=== PATIENT | male | born 1980 | race Two or more races ===

== ENCOUNTER 2016-06-14 01:10 | Inpatient (IN) | payer MEDICAID ==
--- NOTE | 2016-06-14 01:23 | EDPHY ---
H & P Stated Complaint: Post Op Hernia Repair, Fever Time Seen by Provider: 06/14/16 01:16 HPI/ROS: Chief Complaint: Fever, abdominal pain HPI: 36-year-old male who 10 days status post ventral hernia repair who is presenting complaining of abdominal pain and fever at the rehab facility that he is staying in. Patient has an extensive medical history including history of colon cancer is status post colectomy with ileostomy, multiple abscesses and hernia repairs. He states that he has been having persistent abdominal pain since discharge from the hospital, but this has been worse for the last 2-3 days. Pain is up to about an 8 or 9/10, but he has not been getting his usual pain medications per his report. No nausea or vomiting or diarrhea. Denies any discharge from the wound. Today in the nursing measured temperature and told him that as 101.7 and the so called EMS. ROS: 10 point Review of Systems is negative except as noted in the HPI. PMH: Colon cancer status post ileostomy, colectomy Multiple hernia repairs C difficile colitis MRSA Congenital glaucoma Type 2 diabetes Depression Hypertension Chronic kidney disease Medications: Acidophilus Amlodipine Citalopram Glipizide Morphine A present lab Gabapentin Humalog Oxycodone Allergies: Iodinated contrast Social History: No smoking, no alcohol, no recreational drug use Family History: non-contributory Physical Exam: Gen: Awake, Alert, No Distress HEENT: Nose: no rhinorrhea Eyes: Congenital blindness Mouth: Moist mucosa Neck: Supple, no JVD Chest: nontender, lungs clear to auscultation Heart: S1, S2 normal, no murmur Abd: Soft, ventral incision is intact with petrona in place, no erythema or dehiscence, right-sided ileostomy is normal appearing, diffuse abdominal tenderness, no guarding Ext: no edema, non-tender Skin: no rash Neuro: CN II-XII intact, Sensation grossly intact, Strength 5/5 in bilateral upper and lower extremities - Personal History Current Tetanus Diphtheria and Acellular Pertussis (TDAP): Yes - Medical/Surgical History Hx Asthma: No Hx Chronic Respiratory Disease: No Hx Diabetes: No Hx Cardiac Disease: No Hx Renal Disease: No Hx Cirrhosis: No Hx Alcoholism: No Hx HIV/AIDS: No Hx Splenectomy or Spleen Trauma: No Other PMH: Hernia Repair, Colon CA, Colostomy - Social History Smoking Status: Never smoked Constitutional: Initial Vital Signs Temperature (C) 37.4 C 06/14/16 01:15 Heart Rate 111 H 06/14/16 01:15 Respiratory Rate 20 06/14/16 01:15 Blood Pressure 115/98 H 06/14/16 01:15 O2 Sat (%) 95 06/14/16 01:15 O2 Delivery Mode Room Air Allergies/Adverse Reactions: iodine Allergy (Verified 06/14/16 02:31) Home Medications: Medication Instructions Recorded ALPRAZolam 06/14/16 Amlodipine Besylate 06/14/16 Ativan 06/14/16 Citalopram 06/14/16 GABAPENTIN 06/14/16 GLIPIZIDE 06/14/16 Humalog 06/14/16 Hydromorphone HCl 06/14/16 MORPHINE SULFATE 06/14/16 Oxycodone HCl 06/14/16 Senna-S Tablet 06/14/16 Tylenol 06/14/16 Zofran 06/14/16 Medical Decision Making - Diagnostics Imaging: CT scan shows a 6.9 x 6 x 4.5 fluid collection subcutaneously adjacent to the stoma which is consistent with abscess. Patient also has an area deeper to his mesh with air tracking along the anterior midline of the perineum, no abscess. Findings are concerning for head and back saenz. It interpreted by Dr. Niño. ED Course/Re-evaluation: Patient is a noted leukocytosis. Is afebrile here. CT scan is noted. I have discussed with Dr. Aburto, general surgery. He will evaluate the patient in the ED. Patient seen by General surgery. They are requesting that given the patient's multiple medical problems that the patient be admitted to the hospitalist service. Discussed with Dr. Claudio, hospitalist. She is happy to admit with General surgery consulting. - Data Points Laboratory Results: Laboratory Results 06/14/16 01:30 06/14/16 01:30 06/14/16 06/14/16 06/14/16 01:30 01:30 01:30 WBC 12.89 10^3/uL H 10^3/uL (3.80-9.50) RBC 3.88 10^6/uL L 10^6/uL (4.40-6.38) Hgb 11.6 g/dL L g/dL (13.7-17.5) Hct 33.4 % L % (40.0-51.0) MCV 86.1 fL fL (81.5-99.8) MCH 29.9 pg pg (27.9-34.1) MCHC 34.7 g/dL g/dL (32.4-36.7) RDW 13.1 % % (11.5-15.2) Plt Count 366 10^3/uL 10^3/uL (150-400) MPV 9.1 fL fL (8.7-11.7) Neut % (Auto) 76.6 % H % (39.3-74.2) Lymph % (Auto) 10.6 % L % (15.0-45.0) [place] % (Auto) 8.8 % % (4.5-13.0) Eos % (Auto) 2.9 % % (0.6-7.6) Baso % (Auto) 0.3 % % (0.3-1.7) Nucleat RBC Rel Count 0.0 % % (0.0-0.2) Absolute Neuts (auto) 9.88 10^3/uL H 10^3/uL (1.70-6.50) Absolute Lymphs (auto) 1.36 10^3/uL 10^3/uL (1.00-3.00) Absolute Monos (auto) 1.14 10^3/uL H 10^3/uL (0.30-0.80) Absolute Eos (auto) 0.37 10^3/uL 10^3/uL (0.03-0.40) Absolute Basos (auto) 0.04 10^3/uL 10^3/uL (0.02-0.10) Absolute Nucleated RBC 0.00 10^3/uL 10^3/uL (0-0.01) Immature Gran % 0.8 % % (0.0-1.1) Immature Gran # 0.10 10^3/uL 10^3/uL (0.00-0.10) Sodium 135 mEq/L mEq/L (134-144) Potassium 3.8 mEq/L mEq/L (3.5-5.2) Chloride 100 mEq/L mEq/L (97-110) Carbon Dioxide 27 mEq/l mEq/l (22-31) Anion Gap 8 mEq/L mEq/L (8-16) BUN 10 mg/dL mg/dL (7-23) Creatinine 0.6 mg/dL L mg/dL (0.7-1.3) Estimated GFR > 60 Glucose 166 mg/dL H mg/dL (70-100) Calcium 8.7 mg/dL mg/dL (8.5-10.4) Total Bilirubin 0.5 mg/dL mg/dL (0.1-1.4) Conjugated Bilirubin 0.3 mg/dL mg/dL (0.0-0.5) Unconjugated Bilirubin 0.2 mg/dL mg/dL (0.0-1.1) AST 11 IU/L L IU/L (17-59) ALT 28 IU/L IU/L (21-72) Alkaline Phosphatase 96 IU/L IU/L (38-126) Total Protein 5.7 g/dL L g/dL (6.3-8.2) Albumin 2.9 g/dL L g/dL (3.5-5.0) Lipase 32.0 IU/L IU/L (23-300) Urine Color PALE YELLOW Urine Appearance CLEAR Urine pH 6.0 (5.0-7.5) Ur Specific [place] 1.005 (1.002-1.030) Urine Protein NEGATIVE (NEGATIVE) Urine Ketones NEGATIVE (NEGATIVE) Urine Blood NEGATIVE (NEGATIVE) Urine Nitrate NEGATIVE (NEGATIVE) Urine Bilirubin NEGATIVE (NEGATIVE) Urine Urobilinogen NEGATIVE EU EU (0.2-1.0) Ur Leukocyte Esterase NEGATIVE (NEGATIVE) Urine Glucose NEGATIVE (NEGATIVE) Departure - Departure Disposition: [facility] Inpatient Acute Clinical Impression: Abscess, Abdominal pain Condition: Fair Referrals: WINSTON GODOY [Primary Care Provider] - As per Instructions
[2016-06-14 01:55] LABS: % IMMATURE GRANULYOCYTES 0.8 % (0.0-1.1); ADD DIFF? NO; ADD MORPH? NO; ADD SCAN? NO; ATYPICAL LYMPHOCYTE FLAG 0 (0-99); FRAGMENT RBC FLAG 0 (0-99); HEMATOCRIT 33.4 % (40.0-51.0); HEMOGLOBIN 11.6 g/dL (13.7-17.5); LEFT SHIFT FLG 0 (0-99); LIPEMIA HEMOLYSIS FLAG 90 (0-99); MEAN CELL HEMOGLOBIN 29.9 pg (27.9-34.1); MEAN CELL HEMOGLOBIN CONCENTR. 34.7 g/dL (32.4-36.7); MEAN CELL VOLUME 86.1 fL (81.5-99.8); MEAN PLATELET VOLUME 9.1 fL (8.7-11.7); PLATELET CLUMPS FLAG 0 (0-99); PLATELET COUNT 366 10^3/uL (150-400); RED BLOOD CELL COUNT 3.88 10^6/uL (4.40-6.38); RED CELL DISTRIBUTION WIDTH 13.1 % (11.5-15.2)
[2016-06-14 01:59] LABS: COLOR PALE YELLOW; LEUKOCYTE ESTERASE,URINE NEGATIVE (NEGATIVE); NITRITE,URINE NEGATIVE (NEGATIVE)
[2016-06-14 02:03] LABS: ALANINE AMINOTRANSFERASE 28 IU/L (21-72); ALBUMIN 2.9 g/dL (3.5-5.0); ALKALINE PHOSPHATASE 96 IU/L (38-126); ANION GAP 8 mEq/L (8-16); ASPARTATE AMINOTRANSFERASE 11 IU/L (17-59); BILIRUBIN,TOTAL 0.5 mg/dL (0.1-1.4); BILIRUBIN-CONJUGATED 0.3 mg/dL (0.0-0.5); BILIRUBIN-UNCONJUGATED 0.2 mg/dL (0.0-1.1); CALCIUM 8.7 mg/dL (8.5-10.4); CARBON DIOXIDE 27 mEq/l (22-31); CHLORIDE 100 mEq/L (97-110); CREATININE 0.6 mg/dL (0.7-1.3); GLOMERULAR FILTRATION RATE > 60; GLUCOSE 166 mg/dL (70-100); POTASSIUM 3.8 mEq/L (3.5-5.2); SODIUM 135 mEq/L (134-144); TOTAL PROTEIN 5.7 g/dL (6.3-8.2)
[2016-06-14] MEDS ORDERED: IOPAMIDOL (ISOVUE-300) 100 ML BTL IV ONE (02:07)
[2016-06-14] MEDS ORDERED: HYDROmorphONE/DILAUDID 1 MG/ML SYR IVP ONE ×2 (03:58→11:03)
[2016-06-14] MEDS ORDERED: NS 1,000 ML IV ONE (03:59)
[2016-06-14] MEDS ORDERED: ERTAPENEM 1 GM in NS 100 ML IV ONE (03:59)
[2016-06-14] MEDS ORDERED: ONDANSETRON 4 MG/2 ML VIAL IVP PRN (04:29)
[2016-06-14] MEDS ORDERED: ONDANSETRON DISINTEGRATING 4 MG TAB PO PRN ×2 (04:29→12:18)
[2016-06-14] MEDS ORDERED: LORazepam 2 MG/ML INJ IVP PRN (04:29)
[2016-06-14] MEDS ORDERED: ACETAMINOPHEN 325 MG TAB PO PRN (04:29)
[2016-06-14] MEDS ORDERED: D50W 25 GM/50 ML SYR IVP PRN (04:32)
--- NOTE | 2016-06-14 04:35 | GCON ---
[f rep st] CONSULTATION DATE OF CONSULTATION: 06/14/2016 CHIEF COMPLAINT: Abdominal pain. HISTORY OF PRESENT ILLNESS: This is a 36-year-old male with a complex past medical history. Briefl y, he is 10 days out from an extensive ventral and parastomal hernia repair performed at [facility] in [place]. The patient was just recently discharged from the hospital this last Thursday to [facility] for continued convalescence. The patient states that he has had an upwards of 7 para stomal and ventral hernias in the past, and that this repair was supposed to be the definitive one t o fix his peristomal hernia. He endorses that in the hospital there he had a significant amount of pain, which prompted his discharge to a rehab facility for further care. In the rehab facility, he states that today he had an acute worsening of his abdominal pain. He also had a low-grade fever, w hich is why he was transferred here. Here in the emergency department, he endorses sort of diffuse abdominal pain, cannot really localize where it is. Denies having fevers or chills, and otherwise s tates that he feels okay but does endorse that the pain is worse today. He denies having any draina ge from his midline incision, although he is blind and cannot really see it that well. He does have a right-sided stoma which is pink and looks well and is actively functioning. He had a CT scan her e in the emergency department which shows a fairly large fluid collection measuring 6 x 6 lateral to his stoma on that right side consistent with an abscess. He also has a little bit of air bubbles a round his midline incision which are, in addition, concerning. PAST MEDICAL HISTORY: Colon cancer, status post ileostomy, colectomy, multiple hernia repairs, C di fficile colitis, MRSA, congenital glaucoma and blindness, type 2 diabetes, depression, hypertension, and chronic kidney disease. MEDICATIONS: Reviewed in [employer]. PAST SURGICAL HISTORY: It appears that he had a subtotal to total colectomy. At one point in time, it does look like he had a colostomy, now only has an end ileostomy. Denies having any other surge alvarado. ALLERGIES: Iodine. REVIEW OF SYSTEMS: A full 10-point review was performed and, unless explicitly stated above, is oth erwise negative. PHYSICAL EXAMINATION: VITAL SIGNS: Temperature 37.4, blood pressure 115/98, heart rate 100, he is 95% on room air. GENERAL: He is alert and oriented, in no acute distress. He is blind. CV: He i s intermittently tachycardic, although he has no murmurs. LUNGS: Clear. ABDOMEN: Obese. His mid line incision is clean, dry and intact. His right-sided stoma is pink with active drainage. He is tender around the midline incision. I do not appreciate any rebound tenderness or guarding. LABORATORY DATA: Leukocytosis to 12,000 with a left shift. Chemistries show an elevated glucose. IMAGING: There is a CT scan of the abdomen and pelvis which shows a 6 x 6 fluid collection lateral to his stoma on the right side. He also has a few free air bubbles in the midline adjacent to his m esh repair but no free fluid around this site. ASSESSMENT AND PLAN: A 36-year-old male with a complex medical history, now with what appears to be abscess status post peristomal hernia repair. I discussed with the patient that I do think he need s to come into the hospital. I feel that this fluid collection lateral to his stoma can likely be a ccessed percutaneously and drained. The midline air bubbles are concerning. However, given the fac t that he has had multiple hernia repairs, likely has residual mesh in the area, and I see no other reasons for him to have any missed small bowel injuries or other reasons for free air. I think that we can continue to watch this. I do think that we should start him on broad-spectrum IV antibiotic s for coverage, as there is some stranding and the fluid in that right lower quadrant is likely infe cted but do feel that he will improve with source control and antibiotics without need for operation . Will continue to follow with you. Appreciate Medicine admission. /[id number]/MODL
[2016-06-14] MEDS: HYDROmorphONE/DILAUDID 1 MG/ML SYR IVP ONE ×2 (05:31→06:00)
[2016-06-14] MEDS: NS 1,000 ML IV SCH (06:24)
--- NOTE | 2016-06-14 06:47 | PDGENHP ---
History and Physical - Chief Complaint abdominal pain, fever - History of Present Illness patient is a 36-year-old male with history of congenital glaucoma with resulting blindness, dm 2, hypertension, depression, osteoarthritis, chronic pain syndrome, multiple abdominal surgeries including subtotal colectomy with current ileostomy and s/p recent ventral hernia repair at [facility] on 06/03, discharged back to [facility] on 06/10. He presents to the ED today with complaint of increased abdominal pain and fever. Patient states since his surgery on 06/03 he has felt subjective fever/chills. However, he has had a normal appetite, has been having normal BMs. This evening, however, he had increased abdominal pain and was noted to be febrile to 101.7F, so he was given tylenol and sent to the ED for further evaluation. On arrival to the ED patient is afebrile and hemodynamically stable, although slightly tachycardic. Labs revealed leukocytosis. CT abd/pelvis was then obtained and revealed intraperitoneal air as well as abdominal wall fluid collection concerning for abscess. General surgery was consulted and recommended IR evaluation for possible drainage of abscess, IV antibiotics and symptom control. Given patient's multiple medical comorbidities, he was admitted to the hospitalist service for further management. History Information - Allergies/Home Medication List Allergies/Adverse Reactions: iodine Allergy (Verified 06/14/16 02:31) Home Medications: ALPRAZolam 06/14/16 [Last Taken Unknown] Amlodipine Besylate 06/14/16 [Last Taken Unknown] Ativan 06/14/16 [Last Taken Unknown] Citalopram 06/14/16 [Last Taken Unknown] GABAPENTIN 06/14/16 [Last Taken Unknown] GLIPIZIDE 06/14/16 [Last Taken Unknown] Humalog 06/14/16 [Last Taken Unknown] Hydromorphone HCl 06/14/16 [Last Taken Unknown] MORPHINE SULFATE 06/14/16 [Last Taken Unknown] Oxycodone HCl 06/14/16 [Last Taken Unknown] Senna-S Tablet 06/14/16 [Last Taken Unknown] Tylenol 06/14/16 [Last Taken Unknown] Zofran 06/14/16 [Last Taken Unknown] I have personally reviewed and updated: family history, medical history, social history, surgical history - Past Medical History Additional medical history: congenital glaucoma with resulting complete blindness. DM2, well controlled on oral meds. Hypertension. osteoarthritis. Chronic pain syndrome. Depression and Anxiety. history of colon cancer. h/o C diff colitis (01/2016) - Surgical History Additional surgical history: subtotal colectomy. ileostomy. multiple abdominal hernia repair surgeries (most recent on 06/03/2016). multiple eye/ corneal surgeries. ankle tendon repairs bilaterlly. craniotomy - Family History Positive for: non-pertinent - Social History Smoking Status: Never smoked Alcohol Use: None Drug Use: None Additional social history: Patient currently lives in [facility], walks with cane. Review of Systems ROS: 10pt was reviewed & negative except for what was stated in HPI & below Physical Exam Temp Pulse Resp BP Pulse Ox 36.9 C 100 20 128/90 H 95 06/14/16 05:49 06/14/16 05:49 06/14/16 05:49 06/14/16 05:49 06/14/16 05:49 O2 (L/minute) 0 Constitutional: no apparent distress, appears nourished, not in pain Eyes: other (blind) Ears, Nose, Mouth, Throat: moist mucous membranes, hearing normal, ears appear normal, no oral mucosal ulcers Cardiovascular: regular rate and rhythym, no murmur, rub, or gallop, pulses symmetric bilaterally, No JVD, No edema Peripheral Pulses: 2+: dorsalis-pedis (R), dorsalis-pedis (L) Respiratory: no respiratory distress, no rales or rhonchi, clear to auscultation Gastrointestinal: other (diffuse abdominal tenderness, recent midline incision without erythema or purulence; ileostomy in R abdominal wall) Genitourinary: no bladder fullness, no bladder tenderness Skin: warm, normal color, no rashes or abrasions, no fluctuance, no induration, No mottled Musculoskeletal: full muscle strength, no muscle tenderness, normal joint ROM, no joint effusions Neurologic: AAOx3, sensation intact bilaterally, CN II-XII Intact (other than blindness), No weakness, No numbness Psychiatric: interacting appropriately, not anxious, not encephalopathic, thought process linear Lab Data & Imaging Review 06/14/16 01:30 06/14/16 01:30 WBC 12.89 10^3/uL (3.80-9.50) H 06/14/16 01:30 RBC 3.88 10^6/uL (4.40-6.38) L 06/14/16 01:30 Hgb 11.6 g/dL (13.7-17.5) L 06/14/16 01:30 Hct 33.4 % (40.0-51.0) L 06/14/16 01:30 MCV 86.1 fL (81.5-99.8) 06/14/16 01:30 MCH 29.9 pg (27.9-34.1) 06/14/16 01:30 MCHC 34.7 g/dL (32.4-36.7) 06/14/16 01:30 RDW 13.1 % (11.5-15.2) 06/14/16 01:30 Plt Count 366 10^3/uL (150-400) 06/14/16 01:30 MPV 9.1 fL (8.7-11.7) 06/14/16 01:30 Neut % (Auto) 76.6 % (39.3-74.2) H 06/14/16 01:30 Lymph % (Auto) 10.6 % (15.0-45.0) L 06/14/16 01:30 [place] % (Auto) 8.8 % (4.5-13.0) 06/14/16 01:30 Eos % (Auto) 2.9 % (0.6-7.6) 06/14/16 01:30 Baso % (Auto) 0.3 % (0.3-1.7) 06/14/16 01:30 Nucleat RBC Rel Count 0.0 % (0.0-0.2) 06/14/16 01:30 Absolute Neuts (auto) 9.88 10^3/uL (1.70-6.50) H 06/14/16 01:30 Absolute Lymphs (auto) 1.36 10^3/uL (1.00-3.00) 06/14/16 01:30 Absolute Monos (auto) 1.14 10^3/uL (0.30-0.80) H 06/14/16 01:30 Absolute Eos (auto) 0.37 10^3/uL (0.03-0.40) 06/14/16 01:30 Absolute Basos (auto) 0.04 10^3/uL (0.02-0.10) 06/14/16 01:30 Absolute Nucleated RBC 0.00 10^3/uL (0-0.01) 06/14/16 01:30 Immature Gran % 0.8 % (0.0-1.1) 06/14/16 01:30 Immature Gran # 0.10 10^3/uL (0.00-0.10) 06/14/16 01:30 Sodium 135 mEq/L (134-144) 06/14/16 01:30 Potassium 3.8 mEq/L (3.5-5.2) 06/14/16 01:30 Chloride 100 mEq/L (97-110) 06/14/16 01:30 Carbon Dioxide 27 mEq/l (22-31) 06/14/16 01:30 Anion Gap 8 mEq/L (8-16) 06/14/16 01:30 BUN 10 mg/dL (7-23) 06/14/16 01:30 Creatinine 0.6 mg/dL (0.7-1.3) L 06/14/16 01:30 Estimated GFR > 60 06/14/16 01:30 Glucose 166 mg/dL (70-100) H 06/14/16 01:30 Calcium 8.7 mg/dL (8.5-10.4) 06/14/16 01:30 Total Bilirubin 0.5 mg/dL (0.1-1.4) 06/14/16 01:30 Conjugated Bilirubin 0.3 mg/dL (0.0-0.5) 06/14/16 01:30 Unconjugated Bilirubin 0.2 mg/dL (0.0-1.1) 06/14/16 01:30 AST 11 IU/L (17-59) L 06/14/16 01:30 ALT 28 IU/L (21-72) 06/14/16 01:30 Alkaline Phosphatase 96 IU/L (38-126) 06/14/16 01:30 Total Protein 5.7 g/dL (6.3-8.2) L 06/14/16 01:30 Albumin 2.9 g/dL (3.5-5.0) L 06/14/16 01:30 Lipase 32.0 IU/L (23-300) 06/14/16 01:30 Urine Color PALE YELLOW 06/14/16 01:30 Urine Appearance CLEAR 06/14/16 01:30 Urine pH 6.0 (5.0-7.5) 06/14/16 01:30 Ur Specific [place] 1.005 (1.002-1.030) 06/14/16 01:30 Urine Protein NEGATIVE (NEGATIVE) 06/14/16 01:30 Urine Ketones NEGATIVE (NEGATIVE) 06/14/16 01:30 Urine Blood NEGATIVE (NEGATIVE) 06/14/16 01:30 Urine Nitrate NEGATIVE (NEGATIVE) 06/14/16 01:30 Urine Bilirubin NEGATIVE (NEGATIVE) 06/14/16 01:30 Urine Urobilinogen NEGATIVE EU (0.2-1.0) 06/14/16 01:30 Ur Leukocyte Esterase NEGATIVE (NEGATIVE) 06/14/16 01:30 Urine Glucose NEGATIVE (NEGATIVE) 06/14/16 01:30 Visualized and Interpreted imaging results: Yes Interpretation: CT abd/pelvis: subcutaneous abdominal wall fluid collection concerning for abscess, intrabdominal free air Assessment & Plan Assessment: Patient is a 36 year old male with congenital glaucoma with resulting blindness , dm 2, hypertension, chronic pain syndrome, multiple abdominal surgeries including subtotal colectomy with ileostomy and s/p recent ventral hernia repair on 06/03 who presents with increased abdominal pain, fever. ED evaluation reveals abdominal wall fluid collection concerning for abscess as well as intra- abdominal free air. Plan: # abdominal pain CT findings are concerning for shashi-stomal/abdominal wall abscess. General surgery onboard, will also consult IR for attempt at percutaneous drainage. CT also concerning for intrabdominal free air, however, this may be related to recent abdominal surgery not acute bowel perforation or injury. Will continue IV antibiotics, symptom control and follow serial abdominal exams. # leukocytosis Patient with reported fever prior to arrival, on presentation has leukocytosis and tachycardia, meeting SIRS criteria. Given obvious source of infection in abdomen, meets sepsis criteria, without evidence for severe sepsis. Will f/u blood cultures, sent abd fluid culture when obtained and continue IV ertapenem. # chronic pain syndrome Patient with chronic pain and now presents with acute abdominal pain. Will confirm and continue home long acting medicine, with IV dilaudid as needed for breakthrough. # chronic hypertension BP stable, will confirm and continue home meds. # DM2 Patient reports DM is well controlled on oral meds. Will hold orals while inpatient and place on sliding scale coverage. # dispo: admit to inpatient service for likely > 2 [place] stay # gen: NPO DVT ppx: high risk, lovenox Full code
[2016-06-14] MEDS ORDERED: ENOXAPARIN 40 MG/0.4 ML SYR SC SCH (09:00)
[2016-06-14 09:20] LABS: INR 1.13 (0.83-1.16); PROTIME(PATIENT) 14.4 SEC (12.0-15.0)
[2016-06-14] MEDS: HYDROmorphONE/DILAUDID 1 MG/ML SYR IVP PRN ×2 (10:49→15:37)
[2016-06-14] MEDS: LORazepam 2 MG/ML INJ IVP PRN ×3 (11:14→23:13)
[2016-06-14] MEDS: INSULIN LISPRO 100 UNIT/ML SC SCH ×4 (11:14→22:07)
[2016-06-14] MEDS ORDERED: oxyCODONE IR 5 MG TAB PO PRN (12:18)
[2016-06-14] MEDS ORDERED: NON-FORMULARY NEW DRUG (Citalopram Hydrobromide [Citalopram Hbr] 40 MG) PO SCH (12:30)
[2016-06-14] MEDS ORDERED: LIDOCAINE 1% 30 ML SDV ONE (12:45)
[2016-06-14] MEDS ORDERED: NA BICARBONATE 50 MEQ/50 ML VIAL ONE (12:46)
--- NOTE | 2016-06-14 13:37 | HOSPPROG ---
Hospitalist Progress Note Assessment/Plan: Patient is a 36 year old male with congenital glaucoma with resulting blindness , dm 2, hypertension, chronic pain syndrome, multiple abdominal surgeries including subtotal colectomy with ileostomy and s/p recent ventral hernia repair on 06/03 who presents with increased abdominal pain, fever. ED evaluation reveals abdominal wall fluid collection concerning for abscess as well as intra- abdominal free air. Plan: # abdominal pain CT findings are concerning for shashi-stomal/abdominal wall abscess. General surgery onboard, will also consult IR for attempt at percutaneous drainage. CT also concerning for intrabdominal free air, however, this may be related to recent abdominal surgery not acute bowel perforation or injury. Consult ID. D/W Dr Villalpando. # leukocytosis Patient with reported fever prior to arrival, on presentation has leukocytosis and tachycardia, meeting SIRS criteria. Given obvious source of infection in abdomen, meets sepsis criteria, without evidence for severe sepsis. Will f/u blood cultures, sent abd fluid culture when obtained and continue IV ertapenem. # chronic pain syndrome Patient with chronic pain and now presents with acute abdominal pain. Will confirm and continue home long acting medicine, with IV dilaudid as needed for breakthrough. Restart home meds when able. Change Ativan to Q4. # chronic hypertension BP stable, will confirm and continue home meds. # DM2 Patient reports DM is well controlled on oral meds. Will hold orals while inpatient and place on sliding scale coverage. # dispo: admit to inpatient service for likely > 2 [place] stay # gen: NPO DVT ppx: high risk, lovenox Full code Subjective: Having significant pain. anxious. Objective: Vital Signs Temp Pulse Resp BP Pulse Ox 36.6 C 94 15 120/77 93 06/14/16 11:45 06/14/16 11:45 06/14/16 11:45 06/14/16 11:45 06/14/16 11:45 06/13/16 06/14/16 06/15/16 05:59 05:59 05:59 Intake Total 600 Output Total 300 Balance 300 PT 14.4 SEC (12.0-15.0) 06/14/16 08:49 INR 1.13 (0.83-1.16) 06/14/16 08:49 - Physical Exam Constitutional: chronically ill appearing, obese, uncomfortable Eyes: No PERRL, No anicteric sclera, No EOMI Ears, Nose, Mouth, Throat: moist mucous membranes, hearing normal, ears appear normal Cardiovascular: tachycardia, No JVD, No edema Respiratory: no respiratory distress, no rales or rhonchi, reduced air movement Gastrointestinal: tenderness, No ascites, No distension Skin: warm, normal color, No erythema Musculoskeletal: pain with ROM, muscular tenderness, abnormal gait, generalized weakness Neurologic: AAOx3 Psychiatric: not encephalopathic, thought process linear, anxious ICD10 Worksheet Patient Problems: Problems Problem Status Onset Abscess Acute Abdominal pain Acute
[2016-06-14] MEDS: glipiZIDE 5 MG TAB PO SCH (13:43)
[2016-06-14] MEDS: SENNOSIDES/DOCUSATE SODIUM TAB PO PRN (13:43)
--- NOTE | 2016-06-14 15:15 | POSTOPPROG ---
Post Op Note Date of Operation: 06/14/16 Surgeon: Chano Escalante Anesthesia: Local (Specify) Pre-op Diagnosis: Peristomal fluid collection, abdominal wall Post-op Diagnosis: Same Indication: Pain, tenderness, elevated WBC Procedure: US guided abscess drainage Findings: 14 ml serosanguinous, mildly cloudy, thin fluid Inf/Abcess present in the surg proc area at time of surgery?: Yes Depth: Superfical (Skin SQ) EBL: Minimal Drains: Other (8F pigtail drain in loculated superficial collection) Specimen(s): 10 ml sent for microbiology
[2016-06-14] MEDS: ALPRAZolam 0.5 MG TAB PO SCH ×2 (15:37→21:56)
[2016-06-14] MEDS: GABAPENTIN 300 MG CAP PO SCH ×2 (15:37→21:56)
[2016-06-14] MEDS: VANCOMYCIN HCL/NORMAL SALINE 250 ML IV SCH (18:48)
[2016-06-14] MEDS: HYDROmorphONE/DILAUDID 4 MG TAB PO PRN ×2 (18:48→23:13)
--- NOTE | 2016-06-14 18:51 | GCON ---
[f rep st] CONSULTATION INFECTIOUS DISEASE CONSULTATION. REFERRING PHYSICIAN: Monica Chen NP REASON FOR REFERRAL: Peristomal fluid collection, possible abscess. HISTORY OF PRESENT ILLNESS: Patient is a 36-year-old male with multiple medical problems. The oksana ent has congenital glaucoma and resulting blindness, type 2 diabetes, history of gastrointestinal ca ncer requiring multiple abdominal surgeries. He also was suffering from multiple ventral hernias, w ith a recent repair at [place] on June 03 of this year. He was discharged to [facility] on June 10 . The patient had fever and increased abdominal pain at [facility]. [facility] and determined by imaging to have a small peristomal fluid collection in his abdomen. T his was drained interventionally earlier this afternoon. PAST MEDICAL HISTORY: 1. Congenital glaucoma. 2. Diabetes mellitus type 2. 3. Hypertension. 4. Osteoarthritis. 5. Depression. 6. History of colon cancer. 7. History of Clostridium difficile colitis. PAST SURGICAL HISTORY: 1. Status post subtotal colectomy. 2. Status post ileostomy. 3. Status post multiple ventral hernia repair surgeries. 4. Status post multiple ocular surgeries. 5. Status post ankle tendon repair bilaterally. 6. Status post craniotomy. ANTIBIOTICS: None currently. ALLERGIES: The patient reports allergy to iodine. FAMILY HISTORY: Reviewed and noncontributory. SOCIAL HISTORY: Denies any tobacco or alcohol use. No drug use. Patient currently resides in [facility]. REVIEW OF SYSTEMS: Other than that detailed above in history of present illness, comprehensive 10-s ystem review is negative. PHYSICAL EXAMINATION: VITAL SIGNS: Temperature maximum is 37.4, temp current is 36.9, heart rate i s 101, respiratory rate is 15, blood pressure is 125/83. GENERAL: The patient is a well-formed obe se male in no acute distress. He is not toxic in appearance. He is alert and oriented x3. He has a pleasant demeanor. HEENT: Normocephalic for age. Atraumatic. The patient has his eyelids close d at all times. He is blind. No drainage from the nares. Eyes: Unable to examine. NECK: Supple. No meningismus. LUNGS: Clear to auscultation bilaterall y with good effort. HEART: Tachy but regular. No murmur, rub, or gallop noted. No significant pe ripheral edema. ABDOMEN: Soft. Tender in all quadrants. No rebound. No fluctuance. No masses. Colostomy in place right side. SKIN: Warm and dry to the touch. No rash or lesion noted. MUSCUL OSKELETAL: No muscle belly tenderness is noted. No joint line effusion or arthritis is seen. NEUR O: Cranial nerves intact, although cranial nerve 2 unable to be assessed. Peripheral sensation see ms intact in all extremities. LABORATORY DATA: The patient has a CBC dated 06/14/2016 that shows a white blood cell count of 12.9 , hemoglobin of 11.6, hematocrit of 33.4, and a platelet count of 366, differential slightly left-sh ifted, 77% segmented neutrophils. Serum chemistries on 06/14/2016 are all within normal limits. Gl ucose is mildly elevated at 166. AST and ALT are normal. Urinalysis on 06/14/2016 is all normal. MICROBIOLOGIC DATA: The patient has blood cultures dated 06/14/2016 which are no growth to date. A bdominal fluid aspirate from 06/14/2016 shows 1+ polymorphonuclear white cells, 1+ mononuclear white cells, no organisms. Culture is pending. ASSESSMENT: Probable peristomal abscess in the abdomen. Status post drainage. We will cover empir ically with both vancomycin and ertapenem for now. Patient does seem to have some systemic symptoms due to this infection. His pain is localizing in the area of the abdomen. We will follow culture data and adjust appropriately over his hospitalization. PLAN: 1. Start vancomycin 1 g IV q.12 hours. 2. Start ertapenem 1 g IV q.24 hours. 3. Follow result of culture of the abdominal fluid collection. 4. Follow temp curve and clinical improvement. /[id number]/MODL
[2016-06-14] MEDS: morphINE SR 30 MG TAB PO SCH (21:56)
[2016-06-14 22:37] LABS: GLUCOSE 169 mg/dL (70-100)
[2016-06-15] MEDS: HYDROmorphONE/DILAUDID 4 MG TAB PO PRN ×3 (03:13→20:30)
[2016-06-15] MEDS: LORazepam 2 MG/ML INJ IVP PRN ×5 (03:14→20:31)
[2016-06-15] MEDS: VANCOMYCIN HCL/NORMAL SALINE 250 ML IV SCH ×2 (05:49→17:59)
[2016-06-15] MEDS: HYDROmorphONE/DILAUDID 1 MG/ML SYR IVP PRN ×2 (07:03→11:58)
--- NOTE | 2016-06-15 08:08 | SOAPPROG ---
SOAP Progress Note Assessment/Plan: Assessment: s/p multiple surgeries drain with serosang fluid No immediate need for OR Will follow along S: Want PICC line. PICC controlled O: Incision in midline without obvious infection Good stool output in ostomy Drain with thin serosanguinous fluid Plan: 06/15/16 08:07 Objective: Vital Signs Temp Pulse Resp BP Pulse Ox 36.4 C 98 20 136/82 H 96 06/15/16 07:34 06/15/16 07:34 06/15/16 07:34 06/15/16 07:34 06/15/16 07:34 Microbiology 06/14/16 14:45 Gram Stain - Final Abdomen - Aspirate Laboratory Results 06/14/16 22:05 06/14/16 06/15/16 06/16/16 05:59 05:59 05:59 Intake Total 600 1448 Output Total 300 500 700 Balance 300 948 -700 PT 14.4 SEC (12.0-15.0) 06/14/16 08:49 INR 1.13 (0.83-1.16) 06/14/16 08:49 ICD10 Worksheet Patient Problems: Problems Problem Status Onset Abdominal pain Acute Abscess Acute
[2016-06-15] MEDS ORDERED: Herbals/Supplements -Info Only PO SCH (09:00)
[2016-06-15] MEDS: MULTIVITAMINS 1 EACH TAB PO SCH (09:07)
[2016-06-15] MEDS: ENOXAPARIN 40 MG/0.4 ML SYR SC SCH ×2 (09:07→20:29)
[2016-06-15] MEDS: INSULIN LISPRO 100 UNIT/ML SC SCH ×3 (09:07→17:53)
[2016-06-15] MEDS: GABAPENTIN 300 MG CAP PO SCH ×3 (09:08→20:30)
[2016-06-15] MEDS: morphINE SR 30 MG TAB PO SCH ×2 (09:08→20:31)
[2016-06-15] MEDS: ALPRAZolam 0.5 MG TAB PO SCH ×3 (09:08→20:30)
[2016-06-15] MEDS: CITALOPRAM 20 MG TAB PO SCH (09:08)
[2016-06-15] MEDS: glipiZIDE 5 MG TAB PO SCH (09:08)
[2016-06-15] MEDS ORDERED: ALTEPLASE 2 MG VIAL IVP PRN (09:09)
[2016-06-15] MEDS: ERTAPENEM 1 GM in NS 100 ML IV SCH (09:15)
--- NOTE | 2016-06-15 11:57 | PCMIDPN ---
Assessment/Plan: Assessment: Peristomal fluid collection which was aspirated yesterday. Patient also has mild systemic symptoms and moderate abdominal pain localized to the lower quadrants where the ostomy is located. Patient Gram stain revealed no organisms and the culture showing no growth to date. At present we are covering on both vancomycin and ertapenem. Plan to continue this empirically until clinical resolution or cultures can guide. Plan: 1. Continue both vancomycin ertapenem. 2. Follow results of fluid culture. 3. Follow clinical course. 06/15/16 15:35 Subjective: Patient is resting in his hospital bed. He states that he might be feeling slightly better. Still with abdominal pain. Although he feels this is better controlled with his Dilaudid dose. Mild fever overnight. Objective: Vancomycin # 1 Ertapenem # 2 Vital Signs Temp Pulse Resp BP Pulse Ox 36.4 C 98 20 136/82 H 96 06/15/16 07:34 06/15/16 07:34 06/15/16 07:34 06/15/16 09:08 06/15/16 07:34 Microbiology 06/14/16 14:45 Gram Stain - Final Abdomen - Aspirate Laboratory Results 06/14/16 22:05 06/14/16 06/15/16 06/16/16 05:59 05:59 05:59 Intake Total 600 1448 Output Total 386 503 7243 Balance 300 948 -1100 - Physical Exam General Appearance: WD/WN, alert, no apparent distress, obese, non-toxic Respiratory: lungs clear, normal breath sounds, No respiratory distress Cardiac/Chest: regular rate, rhythm, No tachycardia Abdomen: soft, No non-tender, No mass Skin: normal color, warm/dry, No rash Neuro/Psych: alert, normal mood/affect, oriented x 3 ICD10 Worksheet Patient Problems: Problems Problem Status Onset Abdominal pain Acute Abscess Acute
[2016-06-15] MEDS: NS 1,000 ML IV SCH (11:59)
--- NOTE | 2016-06-15 13:22 | HOSPPROG ---
Hospitalist Progress Note Assessment/Plan: 36 year old male with congenital glaucoma with resulting blindness, T2DM, hypertension, chronic pain syndrome, gastric CA, multiple abdominal surgeries including subtotal colectomy with ileostomy and s/p recent ventral hernia repair on 06/03 (at [place]) who presents with increased abdominal pain, fever. Was rehabbing at [facility]. ED evaluation reveals abdominal wall fluid collection concerning for abscess as well as intra-abdominal free air. Plan: # abdominal pain concerning for peristomal abscess CT findings are concerning for shashi-stomal/abdominal wall abscess appreciate gen surg/ID consult IR has done percutaneous drainage 06/14 started on Invanz and Vanco per ID # leukocytosis Patient with low-gd temps though afebrile currently on presentation has leukocytosis and tachycardia, meeting SIRS criteria BP stable BC NGTD # chronic pain syndrome Patient with chronic pain and now presents with acute abdominal pain on MS Contin at home Being given IV dilaudid as needed for breakthrough # chronic hypertension BP stable back on home Amlodipine # DM2 on orals at home which have been continued also on SSI coverage # dispo: admit to inpatient service for likely > 2 [place] stay # gen: has resumed a regular diet DVT ppx: high risk, lovenox Full code Subjective: Reports pain controlled with Dilaudid as well as home regimen. Objective: Vital Signs Temp Pulse Resp BP Pulse Ox 97.6 F 98 20 136/82 H 96 06/15/16 07:34 06/15/16 07:34 06/15/16 07:34 06/15/16 09:08 06/15/16 07:34 Microbiology 06/14/16 14:45 Gram Stain - Final Abdomen - Aspirate Laboratory Results 06/14/16 22:05 06/14/16 06/15/16 06/16/16 05:59 05:59 05:59 Intake Total 600 1448 Output Total 011 026 4126 Balance 300 948 -1100 PT 14.4 SEC (12.0-15.0) 06/14/16 08:49 INR 1.13 (0.83-1.16) 06/14/16 08:49 - Physical Exam Constitutional: no apparent distress Ears, Nose, Mouth, Throat: moist mucous membranes, hearing normal Cardiovascular: regular rate and rhythym, systolic murmur Respiratory: no respiratory distress Gastrointestinal: soft, non-tender abdomen Skin: warm, normal color Neurologic: AAOx3 Psychiatric: interacting appropriately ICD10 Worksheet Patient Problems: Problems Problem Status Onset Abscess Acute Abdominal pain Acute
[2016-06-15] MEDS ORDERED: IOPAMIDOL (ISOVUE-300) 100 ML BTL IV ONE (14:50)
--- NOTE | 2016-06-15 17:41 | SOAPPROG ---
SOAP Progress Note Assessment/Plan: Assessment: Poor function of drainage tube of right abdominal wall. Plan: Replace drainage tube. Scheduled for 8 a.m. tomorrow. Will need conscious sedation for this--tomorrow; NPO after midnight tonight. 06/15/16 17:38 06/15/16 17:43 Subjective: We discussed upsizing/manipulating current drainage tube or putting a tube in from a different approach. Mr. Masterson understands need for this and consents. Objective: Fluoro Tube check in IR today reveals poor function of current drainage tube. He is very sensitive to any sort of intervention, and will need IV sedation/ analgesia. Vital Signs Temp Pulse Resp BP Pulse Ox 36.2 C 96 18 121/78 H 96 06/15/16 16:00 06/15/16 16:00 06/15/16 16:00 06/15/16 16:00 06/15/16 16:00 Microbiology 06/14/16 14:45 Gram Stain - Final Abdomen - Aspirate Laboratory Results 06/14/16 22:05 06/14/16 06/15/16 06/16/16 05:59 05:59 05:59 Intake Total 600 1448 Output Total 510 619 1099 Balance 300 948 -1600 PT 14.4 SEC (12.0-15.0) 06/14/16 08:49 INR 1.13 (0.83-1.16) 06/14/16 08:49 ICD10 Worksheet Patient Problems: Problems Problem Status Onset Abdominal pain Acute Abscess Acute
[2016-06-16] MEDS: HYDROmorphONE/DILAUDID 1 MG/ML SYR IVP PRN ×3 (00:32→17:12)
[2016-06-16] MEDS: LORazepam 2 MG/ML INJ IVP PRN ×5 (00:32→22:00)
[2016-06-16 05:12] LABS: % IMMATURE GRANULYOCYTES 1.2 % (0.0-1.1); ABSOLUTE IMMATURE GRANULOCYTES 0.13 10^3/uL (0.00-0.10); ADD DIFF? NO; ADD MORPH? NO; ADD SCAN? NO; ATYPICAL LYMPHOCYTE FLAG 10 (0-99); FRAGMENT RBC FLAG 0 (0-99); HEMATOCRIT 31.7 % (40.0-51.0); HEMOGLOBIN 10.7 g/dL (13.7-17.5); LEFT SHIFT FLG 20 (0-99); LIPEMIA HEMOLYSIS FLAG 90 (0-99); MEAN CELL HEMOGLOBIN 29.5 pg (27.9-34.1); MEAN CELL HEMOGLOBIN CONCENTR. 33.8 g/dL (32.4-36.7); MEAN CELL VOLUME 87.3 fL (81.5-99.8); MEAN PLATELET VOLUME 8.9 fL (8.7-11.7); PLATELET CLUMPS FLAG 10 (0-99); PLATELET COUNT 327 10^3/uL (150-400); RED BLOOD CELL COUNT 3.63 10^6/uL (4.40-6.38); RED CELL DISTRIBUTION WIDTH 13.1 % (11.5-15.2)
[2016-06-16] MEDS: VANCOMYCIN HCL/NORMAL SALINE 250 ML IV SCH ×2 (06:02→19:49)
[2016-06-16] MEDS ORDERED: MIDAZOLAM 2 MG/2 ML VIAL ONE (08:23)
[2016-06-16] MEDS ORDERED: fentaNYL 100 MCG/2 ML INJ ONE (08:24)
[2016-06-16] MEDS ORDERED: NA BICARBONATE 50 MEQ/50 ML VIAL ONE (08:41)
[2016-06-16] MEDS ORDERED: IOPAMIDOL (ISOVUE-300) 100 ML BTL IV ONE (09:08)
[2016-06-16] MEDS: ERTAPENEM 1 GM in NS 100 ML IV SCH (10:25)
[2016-06-16] MEDS: HYDROmorphONE/DILAUDID 4 MG TAB PO PRN ×2 (12:09→21:59)
[2016-06-16] MEDS: glipiZIDE 5 MG TAB PO SCH (12:09)
[2016-06-16] MEDS: GABAPENTIN 300 MG CAP PO SCH ×3 (12:09→21:59)
[2016-06-16] MEDS: ALPRAZolam 0.5 MG TAB PO SCH ×3 (12:09→21:59)
[2016-06-16] MEDS: CITALOPRAM 20 MG TAB PO SCH (12:09)
[2016-06-16] MEDS: morphINE SR 30 MG TAB PO SCH ×2 (12:10→21:59)
[2016-06-16] MEDS: MULTIVITAMINS 1 EACH TAB PO SCH (12:10)
[2016-06-16] MEDS: INSULIN LISPRO 100 UNIT/ML SC SCH ×2 (12:10→18:27)
--- NOTE | 2016-06-16 13:01 | HOSPPROG ---
Hospitalist Progress Note Assessment/Plan: 36 year old male with congenital glaucoma with resulting blindness, T2DM, hypertension, chronic pain syndrome, gastric CA, multiple abdominal surgeries including subtotal colectomy with ileostomy and s/p recent ventral hernia repair on 06/03 (at [place]) who presents with increased abdominal pain, fever. Was rehabbing at [facility]. ED evaluation reveals abdominal wall fluid collection concerning for abscess as well as intra-abdominal free air. Today is my first encounter with the patient, chart reviewed. # peristomal abscess/fluid collection CT findings are concerning for shashi-stomal/abdominal wall abscess appreciate gen surg/ID consult IR has done percutaneous drainage 06/14 started on Invanz and Vanco per ID s/p exchange of percutaneous drain today with Dr Dutta # abdominal pain due to the above patient has asked no changes in his pain regimen if any changes are done, he would like to be notified # leukocytosis/ much improved #SIRS resolving BC NGTD #Morbid obesity w a BMI of 41 # chronic pain syndrome on continuous/chronic opioids Patient with chronic pain and now presents with acute abdominal pain on MS Contin at home Being given IV Dilaudid as needed for breakthrough # chronic hypertension BP stable on Amlodipine # DM2 on orals at home which have been continued also on SSI coverage #DVT prophylaxis: LMWH #Plan: cont current treatment/ will return to for rehab once stable Subjective: Jah says his pain is down to a '2' with pain medications. Objective: Vital Signs Temp Pulse Resp BP Pulse Ox 36.9 C 90 15 116/77 96 06/16/16 11:55 06/16/16 11:55 06/16/16 11:55 06/16/16 12:09 06/16/16 11:55 Microbiology 06/14/16 14:45 Gram Stain - Final Abdomen - Aspirate Laboratory Results 06/16/16 04:45 06/14/16 22:05 06/15/16 06/16/16 06/17/16 05:59 05:59 05:59 Intake Total 1448 1550 750 Output Total 500 2500 1000 Balance 948 -950 -250 PT 14.4 SEC (12.0-15.0) 06/14/16 08:49 INR 1.13 (0.83-1.16) 06/14/16 08:49 - Physical Exam Constitutional: no apparent distress, chronically ill appearing, obese Eyes: other (blind/ eyes closed) Ears, Nose, Mouth, Throat: hearing normal Cardiovascular: regular rate and rhythym Respiratory: no respiratory distress Gastrointestinal: normoactive bowel sounds, other (ostomy with loose stool) Skin: warm, other (percutaneous drain on right side of abd with red clear drainage) Musculoskeletal: no muscle tenderness Neurologic: AAOx3 Psychiatric: interacting appropriately, not anxious ICD10 Worksheet Patient Problems: Problems Problem Status Onset Abdominal pain Acute Abscess Acute
--- NOTE | 2016-06-16 16:44 | PCMIDPN ---
Assessment/Plan: Assessment: Peristomal fluid collection which was aspirated upon admission. Patient also has mild systemic symptoms and moderate abdominal pain localized to the lower quadrants where the ostomy is located. Patient Gram stain revealed no organisms and the culture showing no growth to date. At present we are covering on both vancomycin and ertapenem. Plan to continue this empirically until clinical resolution or cultures can guide. Plan: 1. Continue both vancomycin ertapenem. 2. Follow results of fluid culture. 3. Follow clinical course. 06/15/16 15:35 06/16/16 16:42 Subjective: Patient is doing fairly well today. Resting and taking naps often. No new complaint. Objective: Vancomycin # 2 Ertapenem # 3 Vital Signs Temp Pulse Resp BP Pulse Ox 36.9 C 90 15 116/77 96 06/16/16 11:55 06/16/16 11:55 06/16/16 11:55 06/16/16 12:09 06/16/16 11:55 Microbiology 06/14/16 14:45 Gram Stain - Final Abdomen - Aspirate Laboratory Results 06/16/16 04:45 06/14/16 22:05 06/15/16 06/16/16 06/17/16 05:59 05:59 05:59 Intake Total 1448 1550 750 Output Total 500 2500 1350 Balance 948 -950 -600 - Physical Exam General Appearance: WD/WN, alert, no apparent distress, non-toxic Respiratory: lungs clear, normal breath sounds, No respiratory distress Cardiac/Chest: regular rate, rhythm, No tachycardia Abdomen: soft, No non-tender, No mass Skin: normal color, warm/dry, No rash Neuro/Psych: alert, normal mood/affect, oriented x 3 ICD10 Worksheet Patient Problems: Problems Problem Status Onset Abdominal pain Acute Abscess Acute
[2016-06-16] MEDS: VANCOMYCIN 1.5 GM in D5W 250 ML IV SCH (20:12)
[2016-06-16] MEDS: ENOXAPARIN 40 MG/0.4 ML SYR SC SCH (21:59)
[2016-06-17] MEDS: LORazepam 2 MG/ML INJ IVP PRN ×3 (02:20→10:44)
[2016-06-17] MEDS: HYDROmorphONE/DILAUDID 1 MG/ML SYR IVP PRN (02:20)
[2016-06-17] MEDS: HYDROmorphONE/DILAUDID 4 MG TAB PO PRN ×4 (06:47→19:36)
[2016-06-17] MEDS: INSULIN LISPRO 100 UNIT/ML SC SCH ×3 (07:39→17:47)
[2016-06-17] MEDS: CITALOPRAM 20 MG TAB PO SCH (08:11)
[2016-06-17] MEDS: ENOXAPARIN 40 MG/0.4 ML SYR SC SCH ×2 (08:11→21:45)
[2016-06-17] MEDS: VANCOMYCIN 1.5 GM in D5W 250 ML IV SCH ×2 (08:11→19:41)
[2016-06-17] MEDS: glipiZIDE 5 MG TAB PO SCH (08:11)
[2016-06-17] MEDS: ALPRAZolam 0.5 MG TAB PO SCH ×3 (08:14→21:45)
[2016-06-17] MEDS: MULTIVITAMINS 1 EACH TAB PO SCH (08:14)
[2016-06-17] MEDS: GABAPENTIN 300 MG CAP PO SCH ×3 (08:14→21:45)
[2016-06-17] MEDS: morphINE SR 30 MG TAB PO SCH ×2 (08:14→21:45)
[2016-06-17] MEDS: ERTAPENEM 1 GM in NS 100 ML IV SCH (10:24)
--- NOTE | 2016-06-17 10:56 | PCMIDPN ---
Assessment/Plan: Assessment/Plan: 1. Peristomal abscess: - s/p aspiration by IR yesterday. -drain in place -Currently on empiric vanco, invanz empirically. -previous cx from 06/14 with no org on GS, and ngtd -labs from yesterday reviewed- improved. -recommend f/u imaging to ensure resolution of abscess collection and better determine ongoing need of antibiotic and mode of delivery of antibiotics (IV vs pO, or if at all still needed) - care coordinated with hospitalist team. Meds vanco 1g q12- invanz 1g daily Subjective: intermittent low grade temps. feels fatigued today. c/o abd pain more today since procedure yesterday. denies sob. Objective: Vital Signs Temp Pulse Resp BP Pulse Ox 37.6 C 101 H 18 130/81 H 97 06/17/16 07:17 06/17/16 07:17 06/17/16 07:17 06/17/16 08:14 06/17/16 07:17 Microbiology 06/14/16 14:45 Gram Stain - Final Abdomen - Aspirate Laboratory Results 06/16/16 04:45 06/14/16 22:05 06/16/16 06/17/16 06/18/16 05:59 05:59 05:59 Intake Total 1550 2250 Output Total 2500 3010 100 Balance -950 -760 -100 - Physical Exam General Appearance: alert, no apparent distress Respiratory: lungs clear Cardiac/Chest: regular rate, rhythm Extremities: No swelling Abdomen: normal bowel sounds, distended (mild), tender (to mild palpation. ), other (mildline sutures noted. ileostomy. mohit drain right abdomen with minimal drainage noted.) Skin: No erythema ICD10 Worksheet Patient Problems: Problems Problem Status Onset Abdominal pain Acute Abscess Acute
--- NOTE | 2016-06-17 14:49 | HOSPPROG ---
Hospitalist Progress Note Assessment/Plan: 36 year old male with congenital glaucoma with resulting blindness, T2DM, hypertension, chronic pain syndrome, gastric CA, multiple abdominal surgeries including subtotal colectomy with ileostomy and s/p recent ventral hernia repair on 06/03 (at [place]) who presents with increased abdominal pain, fever. Was rehabbing at [facility]. ED evaluation reveals abdominal wall fluid collection concerning for abscess as well as intra-abdominal free air. Reviewed his care with Dr Terry. # peristomal abscess/fluid collection CT findings are concerning for shashi-stomal/abdominal wall abscess appreciate gen surg/ID consult IR has done percutaneous drainage 06/14 Invanz and Vanco per ID s/p exchange of percutaneous drain # abdominal pain due to the above consider repeat CT scan tomorrow reviewed pain med changes with Norman/ he understands I have dc iv Ativan and IV Dilaudid/ is ok with both of these being oral # leukocytosis/ much improved #SIRS resolving BC NGTD #Morbid obesity w a BMI of 41 # chronic pain syndrome on continuous/chronic opioids Patient with chronic pain and now presents with acute abdominal pain on MS Contin at home oral Dilaudid for breakthrough pain # chronic hypertension BP stable on Amlodipine # DM2 on orals at home which have been continued also on SSI coverage #DVT prophylaxis: LMWH #Plan: cont current treatment/ will return to for rehab once stable/ dc iv medications, will discuss with ID tomorrow about further imaging. Subjective: Jah said his pain is worse after mobilizing/ would like one more dose of IV pain medication and says he is ok with oral pain meds. Objective: Vital Signs Temp Pulse Resp BP Pulse Ox 37.6 C 101 H 18 130/81 H 97 06/17/16 07:17 06/17/16 07:17 06/17/16 07:17 06/17/16 08:14 06/17/16 07:17 Microbiology 06/14/16 14:45 Gram Stain - Final Abdomen - Aspirate Laboratory Results 06/16/16 04:45 06/14/16 22:05 06/16/16 06/17/16 06/18/16 05:59 05:59 05:59 Intake Total 1550 2250 Output Total 2500 3010 100 Balance -950 -760 -100 PT 14.4 SEC (12.0-15.0) 06/14/16 08:49 INR 1.13 (0.83-1.16) 06/14/16 08:49 - Physical Exam Constitutional: chronically ill appearing, obese, uncomfortable Eyes: PERRL Ears, Nose, Mouth, Throat: hearing normal Cardiovascular: regular rate and rhythym Respiratory: no respiratory distress Gastrointestinal: normoactive bowel sounds, tenderness (overall the lower the abdomen) Skin: warm, normal color Musculoskeletal: no muscle tenderness Neurologic: AAOx3 Psychiatric: interacting appropriately, not anxious ICD10 Worksheet Patient Problems: Problems Problem Status Onset Abdominal pain Acute Abscess Acute
[2016-06-17] MEDS: LORazepam 1 MG TAB PO PRN ×2 (15:17→19:36)
[2016-06-18] MEDS: HYDROmorphONE/DILAUDID 4 MG TAB PO PRN ×6 (00:28→22:12)
[2016-06-18] MEDS: LORazepam 1 MG TAB PO PRN ×6 (00:28→22:12)
[2016-06-18] MEDS: GABAPENTIN 300 MG CAP PO SCH ×3 (09:07→22:12)
[2016-06-18] MEDS: morphINE SR 30 MG TAB PO SCH ×2 (09:08→22:12)
[2016-06-18] MEDS: glipiZIDE 5 MG TAB PO SCH (09:08)
[2016-06-18] MEDS: CITALOPRAM 20 MG TAB PO SCH (09:09)
[2016-06-18] MEDS: ALPRAZolam 0.5 MG TAB PO SCH ×3 (09:09→22:12)
[2016-06-18] MEDS: INSULIN LISPRO 100 UNIT/ML SC SCH ×3 (09:10→18:19)
[2016-06-18] MEDS: ENOXAPARIN 40 MG/0.4 ML SYR SC SCH ×2 (09:10→22:12)
[2016-06-18] MEDS: VANCOMYCIN 1.5 GM in D5W 250 ML IV SCH (09:10)
[2016-06-18] MEDS: MULTIVITAMINS 1 EACH TAB PO SCH (09:10)
[2016-06-18] MEDS: ERTAPENEM 1 GM in NS 100 ML IV SCH (12:40)
--- NOTE | 2016-06-18 14:03 | PCMIDPN ---
Assessment/Plan: R Peristomal abscess s/p IR drainage 06/14/2016. Cultures are negative. Patient was started on IV ertapenem and vancomycin on 06/14/16. WBC was improved. Blood cultures from 06/14/2016 are negative. --repeat imaging today and labs tomorrow a.m. --dc vancomycin --continue ertapenem for now, likely transition to PO antibiotic to complete therapy if signs of residual inflammation exist on CT scan. Subjective: Belly still painful, wants to make sure everything is resolved prior to discharge. Does not want to go to a SNF Objective: Vital Signs Temp Pulse Resp BP Pulse Ox 36.9 C 85 16 126/86 H 97 06/18/16 07:43 06/18/16 11:20 06/18/16 07:43 06/18/16 09:09 06/18/16 11:20 Microbiology 06/14/16 14:45 Gram Stain - Final Abdomen - Aspirate Laboratory Results 06/16/16 04:45 06/14/16 22:05 06/17/16 06/18/16 06/19/16 05:59 05:59 05:59 Intake Total 2250 1675 Output Total 3010 960 450 Balance -760 715 -450 - Physical Exam General Appearance: alert, no apparent distress, obese EENT: poor dentition Respiratory: lungs clear, No accessory muscle use Neck: supple Cardiac/Chest: regular rate, rhythm Extremities: No pedal edema Abdomen: soft, other (Discomfort to palpation diffusely, right sided ostomy with semi-formed stool in bag) Male Genitalia: No seo Skin: No jaundice, No rash Neuro/Psych: alert, normal mood/affect, oriented x 3 - Time Spent With Patient Time Spent with Patient: greater than 25 minutes (Coordination of care with Citlali Calderon NP) Time Spent with Patient: Greater than 25 minutes spent on this patients care, greater than 50% of time spent counseling, educating, and coordinating care regarding the above mentioned plan. ICD10 Worksheet Patient Problems: Problems Problem Status Onset Abdominal pain Acute Abscess Acute
--- NOTE | 2016-06-18 14:08 | HOSPPROG ---
Hospitalist Progress Note Assessment/Plan: 36 year old male with congenital glaucoma with resulting blindness, T2DM, hypertension, chronic pain syndrome, gastric CA, multiple abdominal surgeries including subtotal colectomy with ileostomy and s/p recent ventral hernia repair on 06/03 (at [place]) who presents with increased abdominal pain, fever. Was rehabbing at [facility]. ED evaluation reveals abdominal wall fluid collection concerning for abscess as well as intra-abdominal free air. Reviewed his care with Dr Ch. # peristomal abscess/fluid collection CT findings are concerning for shashi-stomal/abdominal wall abscess appreciate gen surg/ID consult IR has done percutaneous drainage 06/14 Invanz and Vanco per ID s/p exchange of percutaneous drain will order repeat CT today # abdominal pain due to the above still requiring oral Dilaudid with long acting pain meds Norman wants to be informed of any changes in his meds # leukocytosis/ much improved #SIRS resolving BC NGTD #Morbid obesity w a BMI of 41 # chronic pain syndrome on continuous/chronic opioids Patient with chronic pain and now presents with acute abdominal pain on MS Contin at home oral Dilaudid for breakthrough pain # chronic hypertension BP stable on Amlodipine # DM2 on orals at home which have been continued also on SSI coverage #DVT prophylaxis: LMWH #Plan: he prefers to go home, will get a CT of abdomen today/ repeat labs in a.m./CM actively involved Subjective: Norman says pain is ongoing. Objective: Vital Signs Temp Pulse Resp BP Pulse Ox 36.9 C 85 16 126/86 H 97 06/18/16 07:43 06/18/16 11:20 06/18/16 07:43 06/18/16 09:09 06/18/16 11:20 Microbiology 06/14/16 14:45 Gram Stain - Final Abdomen - Aspirate Laboratory Results 06/16/16 04:45 06/14/16 22:05 06/17/16 06/18/16 06/19/16 05:59 05:59 05:59 Intake Total 2250 1675 Output Total 3010 960 450 Balance -760 715 -450 PT 14.4 SEC (12.0-15.0) 06/14/16 08:49 INR 1.13 (0.83-1.16) 06/14/16 08:49 - Physical Exam Constitutional: obese, uncomfortable Eyes: other (blind) Ears, Nose, Mouth, Throat: hearing normal Cardiovascular: regular rate and rhythym Respiratory: no respiratory distress Gastrointestinal: normoactive bowel sounds Skin: warm Musculoskeletal: generalized weakness Neurologic: AAOx3 Psychiatric: interacting appropriately ICD10 Worksheet Patient Problems: Problems Problem Status Onset Abdominal pain Acute Abscess Acute
[2016-06-19] MEDS: HYDROmorphONE/DILAUDID 4 MG TAB PO PRN ×5 (03:43→21:16)
[2016-06-19] MEDS: LORazepam 1 MG TAB PO PRN ×5 (03:43→21:16)
[2016-06-19 04:01] LABS: % IMMATURE GRANULYOCYTES 0.3 % (0.0-1.1); ABSOLUTE IMMATURE GRANULOCYTES 0.03 10^3/uL (0.00-0.10); ADD DIFF? NO; ADD MORPH? NO; ADD SCAN? NO; ATYPICAL LYMPHOCYTE FLAG 0 (0-99); FRAGMENT RBC FLAG 0 (0-99); HEMATOCRIT 37.5 % (40.0-51.0); HEMOGLOBIN 12.8 g/dL (13.7-17.5); LEFT SHIFT FLG 0 (0-99); LIPEMIA HEMOLYSIS FLAG 90 (0-99); MEAN CELL HEMOGLOBIN 28.8 pg (27.9-34.1); MEAN CELL HEMOGLOBIN CONCENTR. 34.1 g/dL (32.4-36.7); MEAN CELL VOLUME 84.3 fL (81.5-99.8); MEAN PLATELET VOLUME 8.6 fL (8.7-11.7); PLATELET CLUMPS FLAG 0 (0-99); PLATELET COUNT 351 10^3/uL (150-400); RED BLOOD CELL COUNT 4.45 10^6/uL (4.40-6.38); RED CELL DISTRIBUTION WIDTH 12.7 % (11.5-15.2)
[2016-06-19 04:24] LABS: ALANINE AMINOTRANSFERASE 29 IU/L (21-72); ALBUMIN 3.3 g/dL (3.5-5.0); ALKALINE PHOSPHATASE 130 IU/L (38-126); ANION GAP 9 mEq/L (8-16); ASPARTATE AMINOTRANSFERASE 13 IU/L (17-59); BILIRUBIN,TOTAL 0.4 mg/dL (0.1-1.4); CALCIUM 9.1 mg/dL (8.5-10.4); CARBON DIOXIDE 27 mEq/l (22-31); CHLORIDE 103 mEq/L (97-110); CREATININE 0.6 mg/dL (0.7-1.3); GLOMERULAR FILTRATION RATE > 60; GLUCOSE 196 mg/dL (70-100); POTASSIUM 4.4 mEq/L (3.5-5.2); SODIUM 139 mEq/L (134-144); TOTAL PROTEIN 6.3 g/dL (6.3-8.2)
[2016-06-19] MEDS: ERTAPENEM 1 GM in NS 100 ML IV SCH (08:18)
[2016-06-19] MEDS: MULTIVITAMINS 1 EACH TAB PO SCH (08:21)
[2016-06-19] MEDS: GABAPENTIN 300 MG CAP PO SCH ×3 (08:21→21:16)
[2016-06-19] MEDS: glipiZIDE 5 MG TAB PO SCH (08:22)
[2016-06-19] MEDS: morphINE SR 30 MG TAB PO SCH ×2 (08:22→21:16)
[2016-06-19] MEDS: CITALOPRAM 20 MG TAB PO SCH (08:22)
[2016-06-19] MEDS: ALPRAZolam 0.5 MG TAB PO SCH ×3 (08:23→21:16)
[2016-06-19] MEDS: ENOXAPARIN 40 MG/0.4 ML SYR SC SCH ×2 (08:24→21:15)
[2016-06-19] MEDS: INSULIN LISPRO 100 UNIT/ML SC SCH ×3 (08:30→17:22)
--- NOTE | 2016-06-19 16:08 | HOSPPROG ---
Hospitalist Progress Note Assessment/Plan: 36 year old male with congenital glaucoma with resulting blindness, T2DM, hypertension, chronic pain syndrome, gastric CA, multiple abdominal surgeries including subtotal colectomy with ileostomy and s/p recent ventral hernia repair on 06/03 (at [place]) who presents with increased abdominal pain, fever. Was rehabbing at [facility]. ED evaluation reveals abdominal wall fluid collection concerning for abscess as well as intra-abdominal free air. Reviewed his care with Dr Ch. # peristomal abscess/fluid collection Initial CT findings are concerning for shashi-stomal/abdominal wall abscess appreciate gen surg/ID consult IR has done percutaneous drainage 06/14 Invanz and Vanco per ID s/p exchange of percutaneous drain Repeat CT shows small amount of fluid # abdominal pain due to the above still requiring oral Dilaudid with long acting pain meds Norman wants to be informed of any changes in his meds he is stating pain is ongoing today # leukocytosis/ much improved #SIRS resolving BC NGTD #Morbid obesity w a BMI of 41 # chronic pain syndrome on continuous/chronic opioids Patient with chronic pain and now presents with acute abdominal pain on MS Contin at home oral Dilaudid for breakthrough pain # chronic hypertension BP stable on Amlodipine # DM2 on orals at home which have been continued also on SSI coverage #DVT prophylaxis: LMWH #Plan: CM working on getting him back hoome Subjective: Norman is upset and wants to go home, he is willing to go to [facility]. Objective: Vital Signs Temp Pulse Resp BP Pulse Ox 37.0 C 103 H 20 129/104 H 97 06/19/16 11:46 06/19/16 11:46 06/19/16 11:46 06/19/16 11:46 06/19/16 11:46 Microbiology 06/14/16 14:45 Gram Stain - Final Abdomen - Aspirate Laboratory Results 06/19/16 03:55 06/19/16 03:55 06/18/16 06/19/16 06/20/16 05:59 05:59 05:59 Intake Total 1675 480 Output Total 960 1050 Balance 715 -570 PT 14.4 SEC (12.0-15.0) 06/14/16 08:49 INR 1.13 (0.83-1.16) 06/14/16 08:49 - Physical Exam Constitutional: obese, uncomfortable Eyes: PERRL Ears, Nose, Mouth, Throat: hearing normal Cardiovascular: regular rate and rhythym Respiratory: no respiratory distress Gastrointestinal: normoactive bowel sounds, tenderness Skin: warm Musculoskeletal: no muscle tenderness Neurologic: AAOx3 Psychiatric: interacting appropriately ICD10 Worksheet Patient Problems: Problems Problem Status Onset Abdominal pain Acute Abscess Acute
--- NOTE | 2016-06-19 18:52 | PCMIDPN ---
Assessment/Plan: Assessment/Plan: * Parastomal abscess status post percutaneous drainage: CT shows slight decrease in fluid collection size. Drain remains in good position. Still having drain output. Cultures remain negative. Will transition ertapenem to Augmentin to complete therapy. Maintain drain as long as having significant output. Will need repeat CT scan prior to drain removal which will be dictated by drain output. Clinical findings and plan discussed with patient. He notes he has experience some diarrhea previously with Augmentin. Advised that he can use Imodium if he experiences diarrhea (prior history of C difficile and he feels he can't distinguish diarrhea from antibiotic therapy versus diarrhea from C difficile). 06/19/16 18:48 06/19/16 18:55 Subjective: Patient with decreased abdominal pain. Objective: Vital Signs Temp Pulse Resp BP Pulse Ox 37.1 C 99 16 143/95 H 93 06/19/16 18:37 06/19/16 18:37 06/19/16 18:37 06/19/16 18:37 06/19/16 18:37 Microbiology 06/14/16 14:45 Gram Stain - Final Abdomen - Aspirate Laboratory Results 06/19/16 03:55 06/19/16 03:55 06/18/16 06/19/16 06/20/16 05:59 05:59 05:59 Intake Total 1675 480 100 Output Total 960 1050 Balance 715 -570 100 Ertapenem # 6 Abscess cultures no growth CT scan abdomen and pelvis showing fluid collection measuring 6.6 x 3.4 cm by 5 cm versus 6.6 x 4.3 x 6.6 cm; subcutaneous edema remains present - Physical Exam General Appearance: alert, no apparent distress EENT: other (Blind), No pharynx normal Abdomen: non-tender, other (Serosanguineous output in CLARENCE drain; midline incision intact without erythema or drainage), No distended - Line/s RUE PICC Lines: No drainage, No erythema ICD10 Worksheet Patient Problems: Problems Problem Status Onset Abdominal pain Acute Abscess Acute
[2016-06-20] MEDS: LORazepam 1 MG TAB PO PRN ×4 (02:00→15:09)
[2016-06-20] MEDS: HYDROmorphONE/DILAUDID 4 MG TAB PO PRN ×4 (02:00→15:09)
[2016-06-20] MEDS: ENOXAPARIN 40 MG/0.4 ML SYR SC SCH ×2 (08:00→21:07)
[2016-06-20] MEDS: INSULIN LISPRO 100 UNIT/ML SC SCH ×3 (08:01→18:03)
[2016-06-20] MEDS: CITALOPRAM 20 MG TAB PO SCH (08:08)
[2016-06-20] MEDS: ALPRAZolam 0.5 MG TAB PO SCH ×3 (08:09→22:39)
[2016-06-20] MEDS: morphINE SR 30 MG TAB PO SCH ×2 (08:09→22:39)
[2016-06-20] MEDS: MULTIVITAMINS 1 EACH TAB PO SCH (08:09)
[2016-06-20] MEDS: glipiZIDE 5 MG TAB PO SCH (08:09)
[2016-06-20] MEDS: GABAPENTIN 300 MG CAP PO SCH ×3 (08:09→22:39)
[2016-06-20] MEDS: ERTAPENEM 1 GM in NS 100 ML IV SCH (10:34)
--- NOTE | 2016-06-20 15:44 | HOSPPROG ---
Hospitalist Progress Note Assessment/Plan: 36 year old male with congenital glaucoma with resulting blindness, T2DM, hypertension, chronic pain syndrome, gastric CA, multiple abdominal surgeries including subtotal colectomy with ileostomy and s/p recent ventral hernia repair on 06/03 (at [place]) who presents with increased abdominal pain, fever. Was rehabbing at [facility]. ED evaluation reveals abdominal wall fluid collection concerning for abscess as well as intra-abdominal free air. # peristomal abscess/fluid collection Initial CT findings concerning for shashi-stomal/abdominal wall abscess appreciate gen surg/ID consult IR has done percutaneous drainage 06/14 Invanz per ID/will be dc on augmentin s/p exchange of percutaneous drain Repeat CT shows small amount of fluid # abdominal pain due to the above still requiring oral Dilaudid with long acting pain meds Norman wants to be informed of any changes in his meds trial of ibuprofen # leukocytosis/ much improved #SIRS resolving BC NGTD #Morbid obesity w a BMI of 41 # chronic pain syndrome on continuous/chronic opioids Patient with chronic pain and now presents with acute abdominal pain on MS Contin at home oral Dilaudid for breakthrough pain (today decreased dose from 4 mg q 4hours to 4 mg q 6 hours) * patient is also on Xanax (home med) + Ativan/explained to him the Ativan will need to be weaned off/ he is agreeable, but wants another day # chronic hypertension BP stable on Amlodipine # DM2 on orals at home which have been continued also on SSI coverage #DVT prophylaxis: LMWH #Plan: CM working on getting him back home next week/ he has an appt with his PCP next . Do not make any changes with his medications unless you speak with him first/ he is willing to wean off of them, but very slowly. Subjective: Norman says he is having some abdominal pain, overall better. Objective: Vital Signs Temp Pulse Resp BP Pulse Ox 37.0 C 107 H 18 121/81 H 95 06/20/16 15:14 06/20/16 15:14 06/20/16 15:14 06/20/16 15:14 06/20/16 15:14 Microbiology 06/14/16 14:45 Gram Stain - Final Abdomen - Aspirate 06/14/16 08:49 Blood Culture - Final Blood Laboratory Results 06/19/16 03:55 06/19/16 03:55 06/19/16 06/20/16 06/21/16 05:59 05:59 05:59 Intake Total 480 100 Output Total 1050 850 Balance -570 -750 PT 14.4 SEC (12.0-15.0) 06/14/16 08:49 INR 1.13 (0.83-1.16) 06/14/16 08:49 - Physical Exam Constitutional: not in pain, obese Eyes: other (blind) Ears, Nose, Mouth, Throat: hearing normal Cardiovascular: regular rate and rhythym Respiratory: no respiratory distress Gastrointestinal: normoactive bowel sounds Skin: warm Musculoskeletal: no muscle tenderness Neurologic: AAOx3 Psychiatric: interacting appropriately, not anxious ICD10 Worksheet Patient Problems: Problems Problem Status Onset Abdominal pain Acute Abscess Acute
[2016-06-20 22:17] LABS: GLUCOSE 186 mg/dL (70-100)
[2016-06-21] MEDS: LORazepam 1 MG TAB PO PRN ×4 (00:26→19:31)
[2016-06-21] MEDS: HYDROmorphONE/DILAUDID 4 MG TAB PO PRN ×4 (00:27→19:31)
[2016-06-21] MEDS: ERTAPENEM 1 GM in NS 100 ML IV SCH (07:49)
[2016-06-21] MEDS: GABAPENTIN 300 MG CAP PO SCH ×3 (07:49→21:08)
[2016-06-21] MEDS: morphINE SR 30 MG TAB PO SCH ×2 (07:50→21:08)
[2016-06-21] MEDS: CITALOPRAM 20 MG TAB PO SCH (07:50)
[2016-06-21] MEDS: MULTIVITAMINS 1 EACH TAB PO SCH (07:50)
[2016-06-21] MEDS: ALPRAZolam 0.5 MG TAB PO SCH ×3 (07:50→21:09)
[2016-06-21] MEDS: glipiZIDE 5 MG TAB PO SCH (07:50)
[2016-06-21] MEDS: ENOXAPARIN 40 MG/0.4 ML SYR SC SCH ×2 (07:51→21:12)
[2016-06-21] MEDS: INSULIN LISPRO 100 UNIT/ML SC SCH ×3 (07:59→19:31)
--- NOTE | 2016-06-21 10:53 | HOSPPROG ---
Hospitalist Progress Note Assessment/Plan: 36 year old male with congenital glaucoma with resulting blindness, T2DM, hypertension, chronic pain syndrome, gastric CA, multiple abdominal surgeries including subtotal colectomy with ileostomy and s/p recent ventral hernia repair on 06/03 (at [place]) who presents with increased abdominal pain, fever. Was rehabbing at [facility]. ED evaluation reveals abdominal wall fluid collection concerning for abscess as well as intra-abdominal free air. # peristomal abscess/fluid collection Initial CT findings concerning for shashi-stomal/abdominal wall abscess appreciate gen surg/ID consult IR has done percutaneous drainage 06/14 Invanz per ID/will be dc on augmentin s/p exchange of percutaneous drain Repeat CT shows small amount of fluid # abdominal pain due to the above still requiring oral Dilaudid with long acting pain meds Norman wants to be informed of any changes in his meds trial of ibuprofen # leukocytosis/ much improved #SIRS resolving BC NGTD #Morbid obesity w a BMI of 41 # chronic pain syndrome on continuous/chronic opioids Patient with chronic pain and now presents with acute abdominal pain on MS Contin at home oral Dilaudid for breakthrough pain (decreased dose from 4 mg q 4hours to 4 mg q 6 hours) * patient is also on Xanax (home med) + Ativan/explained to him the Ativan will need to be weaned off/ he is agreeable, but wants another day * weaned down to Q6 # chronic hypertension BP stable on Amlodipine # DM2 on orals at home which have been continued also on SSI coverage #DVT prophylaxis: LMWH #Plan: CM working on getting him back home next week/ he has an appt with his PCP next . Do not make any changes with his medications unless you speak with him first/ he is willing to wean off of them, but very slowly. Subjective: Still having some pain. Using pain meds. Doesn' t want to go back to rehab. Objective: Vital Signs Temp Pulse Resp BP Pulse Ox 36.9 C 100 15 142/100 H 97 06/21/16 07:37 06/21/16 07:37 06/21/16 07:37 06/21/16 07:37 06/21/16 07:37 Microbiology 06/14/16 14:45 Gram Stain - Final Abdomen - Aspirate 06/14/16 08:49 Blood Culture - Final Blood Laboratory Results 06/19/16 03:55 06/20/16 21:18 06/20/16 06/21/16 06/22/16 05:59 05:59 05:59 Intake Total 100 400 Output Total 850 150 670 Balance -750 250 -670 PT 14.4 SEC (12.0-15.0) 06/14/16 08:49 INR 1.13 (0.83-1.16) 06/14/16 08:49 - Physical Exam Constitutional: appears nourished, chronically ill appearing, obese Eyes: No PERRL, No anicteric sclera, No EOMI Ears, Nose, Mouth, Throat: moist mucous membranes, No oral thrush Cardiovascular: regular rate and rhythym, No JVD, No edema Respiratory: no respiratory distress, no rales or rhonchi, reduced air movement Gastrointestinal: tenderness, No ascites Skin: warm, normal color, No erythema Musculoskeletal: normal joint ROM, generalized weakness Neurologic: AAOx3 Psychiatric: not anxious, not encephalopathic, thought process linear ICD10 Worksheet Patient Problems: Problems Problem Status Onset Abscess Acute Abdominal pain Acute
[2016-06-21 12:31] LABS: ANION GAP 8 mEq/L (8-16); CALCIUM 8.4 mg/dL (8.5-10.4); CARBON DIOXIDE 25 mEq/l (22-31); CHLORIDE 106 mEq/L (97-110); CREATININE 0.5 mg/dL (0.7-1.3); GLOMERULAR FILTRATION RATE > 60; GLUCOSE 127 mg/dL (70-100); POTASSIUM 3.8 mEq/L (3.5-5.2); SODIUM 139 mEq/L (134-144)
[2016-06-21 19:14] LABS: GLUCOSE 215 mg/dL (70-100)
[2016-06-22] MEDS: HYDROmorphONE/DILAUDID 4 MG TAB PO PRN ×4 (01:56→22:22)
[2016-06-22] MEDS: LORazepam 1 MG TAB PO PRN ×3 (01:56→15:27)
[2016-06-22] MEDS: ERTAPENEM 1 GM in NS 100 ML IV SCH (09:11)
[2016-06-22] MEDS: glipiZIDE 5 MG TAB PO SCH (09:11)
[2016-06-22] MEDS: CITALOPRAM 20 MG TAB PO SCH (09:12)
[2016-06-22] MEDS: ALPRAZolam 0.5 MG TAB PO SCH ×3 (09:12→22:22)
[2016-06-22] MEDS: morphINE SR 30 MG TAB PO SCH ×2 (09:12→21:26)
[2016-06-22] MEDS: INSULIN LISPRO 100 UNIT/ML SC SCH ×3 (09:13→17:33)
[2016-06-22] MEDS: GABAPENTIN 300 MG CAP PO SCH ×3 (09:15→22:22)
[2016-06-22] MEDS: ENOXAPARIN 40 MG/0.4 ML SYR SC SCH ×2 (09:15→21:27)
[2016-06-22] MEDS: MULTIVITAMINS 1 EACH TAB PO SCH (09:15)
--- NOTE | 2016-06-22 12:16 | HOSPPROG ---
Hospitalist Progress Note Assessment/Plan: 36 year old male with congenital glaucoma with resulting blindness, T2DM, hypertension, chronic pain syndrome, gastric CA, multiple abdominal surgeries including subtotal colectomy with ileostomy and s/p recent ventral hernia repair on 06/03 (at [place]) who presents with increased abdominal pain, fever. Was rehabbing at [facility]. ED evaluation reveals abdominal wall fluid collection concerning for abscess as well as intra-abdominal free air. Reviewed with RN. # peristomal abscess/fluid collection Initial CT findings concerning for shashi-stomal/abdominal wall abscess appreciate gen surg/ID consult IR has done percutaneous drainage 06/14 DC invanz, start augementin s/p exchange of percutaneous drain Repeat CT shows small amount of fluid # abdominal pain due to the above still requiring oral Dilaudid with long acting pain meds Norman wants to be informed of any changes in his meds cont titration of dilaudid and ativan # leukocytosis/ much improved #SIRS resolved BC NGTD #Morbid obesity w a BMI of 41 # chronic pain syndrome on continuous/chronic opioids Patient with chronic pain and now presents with acute abdominal pain on MS Contin at home oral Dilaudid for breakthrough pain (decreased dose from 4 mg q6 hrs to 3mg) * patient is also on Xanax (home med) + Ativan/explained to him the Ativan will need to be weaned off/ he is agreeable, but wants another day * weaned down to Q6 # chronic hypertension BP stable on Amlodipine # DM2 on orals at home which have been continued also on SSI coverage #DVT prophylaxis: LMWH #Plan: CM working on getting him back home next week/ he has an appt with his PCP next . Do not make any changes with his medications unless you speak with him first/ he is willing to wean off of them, but very slowly. Subjective: Pain less today. Eating well. Reviewed medications. Objective: Vital Signs Temp Pulse Resp BP Pulse Ox 37.1 C 94 18 124/81 H 93 06/22/16 07:26 06/22/16 07:26 06/22/16 07:26 06/22/16 07:26 06/22/16 07:26 Laboratory Results 06/19/16 03:55 06/21/16 18:45 06/21/16 06/22/16 06/23/16 05:59 05:59 05:59 Intake Total 400 Output Total 150 3920 Balance 250 -3920 PT 14.4 SEC (12.0-15.0) 06/14/16 08:49 INR 1.13 (0.83-1.16) 06/14/16 08:49 - Physical Exam Constitutional: no apparent distress, appears nourished, obese Eyes: No PERRL, No anicteric sclera, No EOMI Ears, Nose, Mouth, Throat: moist mucous membranes, hearing normal, ears appear normal Cardiovascular: No JVD, No tachycardia, No edema Respiratory: no respiratory distress, clear to auscultation, reduced air movement Gastrointestinal: tenderness, No ascites, No guarding Skin: warm, normal color, No mottled Musculoskeletal: no joint effusions, abnormal gait, generalized weakness Neurologic: AAOx3 Psychiatric: interacting appropriately, not anxious, not encephalopathic ICD10 Worksheet Patient Problems: Problems Problem Status Onset Abscess Acute Abdominal pain Acute
[2016-06-22] MEDS: PROBENECID 500 MG TAB PO SCH (14:27)
[2016-06-22] MEDS: AMOXICILLIN/CLAVULANATE POT 875/125 MG TAB PO SCH (21:26)
[2016-06-23] MEDS: LORazepam 1 MG TAB PO PRN ×3 (04:03→19:54)
[2016-06-23] MEDS: HYDROmorphONE/DILAUDID 4 MG TAB PO PRN (04:04)
[2016-06-23] MEDS: INSULIN LISPRO 100 UNIT/ML SC SCH ×3 (08:52→18:40)
[2016-06-23] MEDS: AMOXICILLIN/CLAVULANATE POT 875/125 MG TAB PO SCH ×2 (08:53→19:54)
[2016-06-23] MEDS: morphINE SR 30 MG TAB PO SCH ×2 (08:53→19:53)
[2016-06-23] MEDS: PROBENECID 500 MG TAB PO SCH (08:53)
[2016-06-23] MEDS: ENOXAPARIN 40 MG/0.4 ML SYR SC SCH ×2 (08:53→19:55)
[2016-06-23] MEDS: CITALOPRAM 20 MG TAB PO SCH (08:53)
[2016-06-23] MEDS: glipiZIDE 5 MG TAB PO SCH (08:54)
[2016-06-23] MEDS: MULTIVITAMINS 1 EACH TAB PO SCH (08:54)
[2016-06-23] MEDS: GABAPENTIN 300 MG CAP PO SCH ×3 (08:54→23:12)
[2016-06-23] MEDS: ALPRAZolam 0.5 MG TAB PO SCH ×3 (08:54→23:12)
[2016-06-23] MEDS ORDERED: HYDROmorphONE/DILAUDID 4 MG TAB PO PRN (10:09)
[2016-06-23] MEDS: HYDROmorphONE/DILAUDID 2 MG TAB PO PRN ×3 (10:46→23:10)
--- NOTE | 2016-06-23 13:15 | HOSPPROG ---
Hospitalist Progress Note Assessment/Plan: 36 year old male with congenital glaucoma with resulting blindness, T2DM, hypertension, chronic pain syndrome, gastric CA, multiple abdominal surgeries including subtotal colectomy with ileostomy and s/p recent ventral hernia repair on 06/03 (at [place]) who presents with increased abdominal pain, fever. Was rehabbing at [facility]. ED evaluation reveals abdominal wall fluid collection concerning for abscess as well as intra-abdominal free air. Reviewed with RN. # peristomal abscess/fluid collection Initial CT findings concerning for shashi-stomal/abdominal wall abscess appreciate gen surg/ID consult IR has done percutaneous drainage 06/14 DC invanz, start augmentin s/p exchange of percutaneous drain Repeat CT shows small amount of fluid # abdominal pain due to the above still requiring oral Dilaudid with long acting pain meds Norman wants to be informed of any changes in his meds cont titration of dilaudid and ativan will add back pt home medication of Oxy ir 10mg Q4 PRN # leukocytosis/ much improved #SIRS resolved BC NGTD #Morbid obesity w a BMI of 41 # chronic pain syndrome on continuous/chronic opioids Patient with chronic pain and now presents with acute abdominal pain on MS Contin/oxyir at home oral Dilaudid for breakthrough pain (decreased dose from 4 mg q6 hrs to 3mg) * patient is also on Xanax (home med) + Ativan/explained to him the Ativan will need to be weaned off/ he is agreeable, * ativan from 1mg to 0.5mg # chronic hypertension BP stable on Amlodipine # DM2 on orals at home which have been continued also on SSI coverage #DVT prophylaxis: LMWH #Plan: CM working on getting him back home next week/ he has an appt with his PCP next . Do not make any changes with his medications unless you speak with him first/ he is willing to wean off of them, but very slowly. Subjective: Having some breakthrough pain. Visited pt twice at bedside. Anxious about pain meds. Objective: Vital Signs Temp Pulse Resp BP Pulse Ox 37.1 C 97 16 117/76 94 06/23/16 08:00 06/23/16 08:00 06/23/16 08:00 06/23/16 08:54 06/23/16 08:00 Laboratory Results 06/19/16 03:55 06/21/16 18:45 06/22/16 06/23/16 06/24/16 05:59 05:59 05:59 Intake Total 1200 Output Total 3920 570 Balance -3920 630 PT 14.4 SEC (12.0-15.0) 06/14/16 08:49 INR 1.13 (0.83-1.16) 06/14/16 08:49 - Physical Exam Constitutional: chronically ill appearing, obese, uncomfortable Eyes: No PERRL, No anicteric sclera, No EOMI Ears, Nose, Mouth, Throat: moist mucous membranes, hearing normal, No ears appear normal Cardiovascular: No JVD, No tachycardia, No edema Respiratory: no respiratory distress, no rales or rhonchi, reduced air movement Gastrointestinal: tenderness, No ascites, No guarding Skin: warm, normal color, No erythema Musculoskeletal: no joint effusions, abnormal gait, generalized weakness Neurologic: AAOx3 Psychiatric: not encephalopathic, thought process linear, anxious, poor judgement ICD10 Worksheet Patient Problems: Problems Problem Status Onset Abscess Acute Abdominal pain Acute
[2016-06-23] MEDS: oxyCODONE IR 5 MG TAB PO PRN ×2 (13:35→19:58)
[2016-06-23 23:44] VITALS: RESP 15
[2016-06-24] MEDS: oxyCODONE IR 5 MG TAB PO PRN ×4 (04:08→16:25)
[2016-06-24] MEDS: LORazepam 1 MG TAB PO PRN ×3 (04:09→16:23)
[2016-06-24] MEDS: morphINE SR 30 MG TAB PO SCH (07:44)
[2016-06-24] MEDS: ALPRAZolam 0.5 MG TAB PO SCH ×2 (07:45→16:24)
[2016-06-24] MEDS: HYDROmorphONE/DILAUDID 2 MG TAB PO PRN ×2 (07:46→14:02)
[2016-06-24] MEDS: GABAPENTIN 300 MG CAP PO SCH ×2 (07:47→16:22)
[2016-06-24] MEDS: CITALOPRAM 20 MG TAB PO SCH (07:47)
[2016-06-24] MEDS: SENNOSIDES/DOCUSATE SODIUM TAB PO PRN (07:47)
[2016-06-24] MEDS: IBUPROFEN 200 MG TAB PO PRN ×2 (07:48→14:01)
[2016-06-24] MEDS: glipiZIDE 5 MG TAB PO SCH (07:49)
[2016-06-24] MEDS: MULTIVITAMINS 1 EACH TAB PO SCH (07:50)
[2016-06-24] MEDS: AMOXICILLIN/CLAVULANATE POT 875/125 MG TAB PO SCH (07:52)
[2016-06-24] MEDS: PROBENECID 500 MG TAB PO SCH (07:52)
[2016-06-24] MEDS: ENOXAPARIN 40 MG/0.4 ML SYR SC SCH (07:53)
[2016-06-24] MEDS: INSULIN LISPRO 100 UNIT/ML SC SCH ×4 (09:39→16:27)
--- NOTE | 2016-06-24 12:59 | PDIAF ---
- Diagnosis Diagnosis: abd abcess Code Status: Full Code - Medication Management Discharge Medications: Medications to Continue on Transfer Herbals/Supplements -Info Only 1 ea PO DAILY 06/14/16 [Last Taken 06/13/16] Multivitamins [Multivitamin (*)] 1 each PO DAILY 06/14/16 [Last Taken 06/13/16] Sennosides/Docusate Sodium [Senna-Docusate Sodium Tablet] 1 each PO DAILY PRN [Last Taken Unknown] ALPRAZolam [Xanax 0.5 MG (*)] 0.5 mg PO TID #6 tab 06/24/16 [Last Taken Unknown] Acetaminophen [Tylenol 325mg (*)] 650 mg PO Q4HRS PRN #0 tab 06/24/16 [Last Taken Unknown] Amoxicillin/Clavulanate Pot [Augmentin 875 MG TAB (*)] 875 mg PO BID #14 tab [Last Taken Unknown] Citalopram Hydrobromide [Citalopram HBr] 40 mg PO DAILY #2 tablet 06/24/16 [ Last Taken Unknown] Gabapentin [Neurontin 300 MG (*)] 300 mg PO TID #7 cap 06/24/16 [Last Taken Unknown] HYDROmorphone HCL [Dilaudid 2 mg (*)] 3 mg PO Q6 PRN #10 tab 06/24/16 [Last Taken Unknown] Ibuprofen [Motrin (*)] 400 mg PO Q6HRS PRN #0 tab 06/24/16 [Last Taken Unknown] LORazepam [Ativan (*)] 0.5 mg PO Q6HRS PRN #4 tab 06/24/16 [Last Taken Unknown] Probenecid [Probenecid 500mg (*)] 500 mg PO DAILY tab 06/24/16 [Last Taken Unknown] amLODIPine BESYLATE [Norvasc 10 mg (*)] 10 mg PO DAILY #10 tab 06/24/16 [Last Taken Unknown] glipiZIDE [Glucotrol 5 mg] 2.5 mg PO DAILY #2 tab 06/24/16 [Last Taken Unknown] morphINE SR [MS Contin/Oramorph SR 30 mg (*)] 30 mg PO BID #6 tab 06/24/16 [ Last Taken Unknown] oxyCODONE IR [Oxycodone Ir (*)] 10 mg PO Q4H PRN #10 tab 06/24/16 [Last Taken Unknown] Test Driller Antibiotics: Augmentin Discharge Medications: Refer to the Discharge Home Medication list for PRN reason. PICC Care - Routine: N/A - Orders Services needed: Home Care, Registered Nurse, Master Weathercaster, Physical Therapy, Occupational Therapy Home Care Face to Face: I certify that this patient was under my care and that I had the required [id number] encounter meeting the encounter requirements on the discharge day. My findings support the fact that the patient is homebound as defined in CMS Chapter 7 Medicare Benefits Manual 30.1.1, The condition of the patient is such that there exists a normal inability to leave home and consequently, leaving home would require a considerable and taxing effort. Diet Recommendation: ADA 1800 consistent carb - Follow Up Care Current Providers and Referrals: WINSTON GODOY [Primary Care Provider] - As per Instructions
--- NOTE | 2016-06-24 14:26 | GDS ---
[f rep st] DISCHARGE SUMMARY DISCHARGE DIAGNOSES: 1. Parastomal abscess with fluid collection. 2. Abdominal pain. 3. Leukocytosis. 4. SIRS. 5. Morbid obesity. 6. Chronic pain syndrome, on continuous opioid. 7. Chronic hypertension. 8. Diabetes mellitus type 2. CONSULTATIONS: 1. Infectious Disease. 2. Surgery. PHYSICAL EXAM: GENERAL: The patient is alert. VITAL SIGNS: Afebrile at 36.9, pulse is 78, respir atory rate 15, blood pressure is 141/92, he is saturating 96% on room air. I have seen and evaluate d the patient on the day of discharge. HOSPITAL COURSE: The patient is a 36-year-old male with multiple past medical problems, including c ongenital glaucoma as well as multiple abdominal surgeries who presents to the emergency room with c omplaints of abdominal pain. He was evaluated and diagnosed with parastomal abscess with fluid jessica ection. During this hospitalization, a drain was placed with Interventional Radiology. The drain c ontinues to have output and will remain in place until he is followed by his regular surgeon on 06/01. He did receive a consultation from Infectious Disease as well as General Surgery here in [facility]. He will continue on oral Augmentin for another week and has been on IV Invanz during [facility] hospital course. 1. Abdominal pain. This is multifactorial acute and chronic in nature. He has been treated with n arcotic medications. His pain is well controlled at this time. He will be discharged home with ext ra Dilaudid. 2. Leukocytosis. This has resolved. 3. SIRS. This has resolved. 4. Morbid obesity. The patient's BMI is 41. This is his baseline. 5. Chronic pain syndrome with continuous opioid use. The patient has a pain contract with his prim maspeth care physician. I have provided him with supplemental Ativan as well as Dilaudid at the time of disposition and he will follow with his primary care physician on 06/25/2016, at which point he rose l be provided further prescriptions of narcotics if deemed appropriate by his primary care provider. I have attempted at length to titrate him off his narcotics as well as benzodiazepines during this hospitalization but have made very little progress. 6. Chronic hypertension. His blood pressure is stable on amlodipine and will continue this in the outpatient setting. 7. Diabetes mellitus type 2. He will continue his previously prescribed home medications. I suspe ct that the patient may require supplemental insulin in the future, but will defer to his primary ca re physician. 8. Disposition: The patient will be discharged home with home health care. There are no pending s tudies. He will have a home RN, PT, OT, social work to assist with his complicated medical and soci al situation. A CLARENCE drain will remain intact at the time of disposition as well as his ostomy requir ing further RN management in the outpatient setting. DISCHARGE MEDICATIONS: 1. Please refer to EMR form. I have provided the patient a prescription for oxycodone IR, 5 mg #10 . 2. MS Contin 30 mg #6. 3. Glucotrol 2.5 mg #2. 4. Gabapentin 300 mg #7. 5. Amlodipine 10 mg #10. 6. Xanax 0.5 mg. 7. Ativan 0.5 mg #4. 8. Dilaudid 2 mg. 9. Augmentin 875 mg #14. I have attempted to place the patient on his regular home medications to the best of my knowledge. I have spent greater than 35 minutes in the care, coordination, and management of this patient's dis position. Follow up again will be on 06/25/2016, with his primary care provider, as well as on 06/01, with his general surgeon. /[id number]/MODL
[2016-06-24 16:16] VITALS: BP 128/85; PULSE 98; TEMP 98.8; O2SAT 94
== END 2016-06-24 17:57 | disposition home health service (06) | DRG 357 ==
LOC: EEVIPCON 01:10 → F3N 05:27
PROVIDERS: ADMIT Internal Medicine; ATTEND Internal Medicine
PROC: 0W9F30Z Drainage of Abdominal Wall with Drainage Device, Percutaneous Approach (ICD-10-PCS; 2016-06-14)
PROC: 02HV33Z Insertion of Infusion Device into Superior Vena Cava, Percutaneous Approach (ICD-10-PCS; principal; 2016-06-16 09:07)
PROC: 0W9F30Z Drainage of Abdominal Wall with Drainage Device, Percutaneous Approach (ICD-10-PCS; principal; 2016-06-16 09:07)
PROC: 0WPF30Z Removal of Drainage Device from Abdominal Wall, Percutaneous Approach (ICD-10-PCS; principal; 2016-06-16 09:07)
DX: K65.1 Peritoneal abscess (principal); R65.10 Systemic inflammatory response syndrome (SIRS) of non-infectious origin without acute organ dysfunction; Z68.41 Body mass index [BMI] 40.0-44.9, adult; E11.9 Type 2 diabetes mellitus without complications; I12.9 Hypertensive chronic kidney disease with stage 1 through stage 4 chronic kidney disease, or unspecified chronic kidney disease; N18.9 Chronic kidney disease, unspecified; Q15.0 Congenital glaucoma; H54.0 Blindness, both eyes; G89.4 Chronic pain syndrome; E66.01 Morbid (severe) obesity due to excess calories; Z85.038 Personal history of other malignant neoplasm of large intestine; Z86.14 Personal history of Methicillin resistant Staphylococcus aureus infection; Z93.2 Ileostomy status
CPT/HCPCS: 82947-QW; 96374; 97116-GP; 97162-GP; 97166-GO; 97530-GO; 97530-GP; 97535-GO; C1751; J1170; J1200; J1335; J1650; J1815; J2060; J2250; J2997; J3010; J3370; Q9967